=== PATIENT | female | born 1945 | race Two or more races ===

== ENCOUNTER 2022-07-20 07:45 | Inpatient (IN) | payer OTHER ==
[~2022-07-20] VITALS: Ht 147.3 cm; Wt 81.6 kg
[~2022-07-20 07:45] MED LIST: ADULT LOW DOSE81 M1 PO; DICLOFENAC POTA50 MG; EZETIMIBE10 MG; FLUOROMETHOLONE5 ML; LISINO PO; LISINOPRIL20 MG; METOP PO; METOPROLOL SUCC50 MG; MYRBETRIQ50 MG; PRAVAST PO; PRAVASTATIN SOD40 MG; PREMAR PO; PREMARIN30 GM; SYNTH PO; SYNTHROID50 MCG; SYSTANE ULTRA 010 ML; TROSPIUM CHLORI20 MG; VITAMIN D3250 MCG; [UNRECOGNIZED DRUG - CODE] PO
[2022-07-20] MEDS ORDERED: TYLENOL ARTHRI650 MG PO (09:57)
[2022-07-20] MEDS ORDERED: MYRBETRIQ25 MG PO (09:59)
[2022-07-26] MEDS ORDERED: FENOFIBRATE67 MG (11:36)
[2022-07-26] MEDS ORDERED: PREMARIN30 GM (11:36)
[2022-07-26] MEDS ORDERED: METOPROLOL TART50 MG (11:36)
[2022-07-26] MEDS ORDERED: TROSPIUM CHLORI20 MG (11:36)
[2022-07-29] MEDS ORDERED: CEFADROXIL500 MG PO (08:18)
[2022-07-29] MEDS ORDERED: PERCOCET 5-3251 EACH PO (08:18)
[2022-07-29] MEDS ORDERED: ELIQUIS2.5 MG PO (08:18)
== END 2022-07-29 15:34 | DRG 470 ==
LOC: SURH 07-26 07:45 → O/R 07-26 09:54 → SURH 07-26 09:54 → SURG 07-26 17:26 → SURH 07-26 20:58
PROVIDERS: ADMIT Orthopaedic Surgery; ATTEND Orthopaedic Surgery
PROC: 0SRB0J9 Replacement of Left Hip Joint with Synthetic Substitute, Cemented, Open Approach (ICD-10-PCS; principal; 2022-07-26 13:00)
DX: M16.12 Unilateral primary osteoarthritis, left hip (principal); D62 Acute posthemorrhagic anemia; E03.9 Hypothyroidism, unspecified; I10 Essential (primary) hypertension; E66.9 Obesity, unspecified